=== PATIENT | female | born 1980 | race Caucasian/White ===

== ENCOUNTER 2017-02-12 19:25 | Emergency (ER) | payer SELFPAY ==
[~2017-02-12] VITALS: Ht 165.1 cm; Wt 93.6 kg
[~2017-02-12 19:25] MED LIST: PREN0.01 PO; [UNRECOGNIZED DRUG - OTHER] PO
[2017-02-12 19:33] VITALS: BP 120/74; PULSE 66; RESP 20; TEMP 98.4; O2SAT 99
[2017-02-12] MEDS ORDERED: SODIUM CHLOR 0.9% 1000 ML INJ 1,000 ML IV ONE (19:54)
[2017-02-12] MEDS ORDERED: SODIUM CHLORIDE 0.9% FLUSH 10 ML FLUSH IVF PRN (20:00)
--- NOTE | 2017-02-12 20:15 | PD ---
HPI Chief Complaint: [employer] Problem/Complaint Time Seen by Provider: 19:44 Travel History International Travel<30 days: No Contact w/Intl Traveler<30days: No Traveled to known affect area: No History of Present Illness HPI Patient is a 36-year-old female who presents to emergency room with complaints of irregular vaginal bleeding. Reports that she has history of PCOS, reports that she also has abnormal menstrual periods. Patient reports that she began to have heavy bleeding since January 26, reports that she uses a heavy pad per hour. Reports that she thought that she was having her menstrual period as she last had her period on November 08, reports that she has not had bleeding since then. She reports that since January 26, she's had increased abdominal cramping and pain. Patient denies sensation of lightheadedness or dizziness. She reports that she did take a test 3 weeks ago which was negative. Patient security specialist is Dr. Chowdhury. [facility] Past Medical History Asthma: Yes Diminished Hearing: No Medical other: Yes (POLYCUSTIC OVARY SYNDROME) Tetanus Vaccination: > 5 Years Influenza Vaccination: No ?: Unknown LMP: 11/08/16 Past Surgical History Section: Yes Gynecologic Surgery: Yes () Social History Alcohol Use: No Tobacco Use: No Substance Use: No Allergies-Medications (Allergen,Severity, Reaction): Coded Allergies: Latex (Verified Adverse Reaction, Mild, IRRITATES SKIN, 03/03/11) No Known Allergies (Verified , 03/03/11) Reported Meds & Prescriptions Reported Meds & Active Scripts Active No Active Prescriptions or Reported Medications Review of Systems General / Constitutional: No: Fever Eyes: No: Visual changes HENT: No: Headaches Cardiovascular: No: Chest Pain or Discomfort Respiratory: No: Shortness of Breath Gastrointestinal: No: Abdominal Pain Genitourinary: Positive: Pelvic Pain, Vaginal Bleeding, No: Urgency, Frequency , Dysuria Musculoskeletal: No: Pain Skin: No Rash Neurologic: No: Weakness Psychiatric: No: Depression Endocrine: No: Polydipsia Hematologic/Lymphatic: No: Easy Bruising Physical Exam Narrative GENERAL: mild distress SKIN: Focused skin assessment warm/dry. HEAD: Atraumatic. Normocephalic. EYES: Pupils equal and round. No scleral icterus. No injection or drainage. ENT: No nasal bleeding or discharge. Mucous membranes pink and moist. NECK: Trachea midline. No JVD. CARDIOVASCULAR: Regular rate and rhythm. No murmur appreciated. RESPIRATORY: No accessory muscle use. Clear to auscultation. Breath sounds equal bilaterally. GASTROINTESTINAL: Abdomen soft, non-tender, nondistended. Hepatic and splenic margins not palpable. : Exam performed with RN at bedside, patient with blood/clots in vaginal vault , cervix closed, no cmt tenderness, b/l adnexal tenderness MUSCULOSKELETAL: No obvious deformities. No clubbing. No cyanosis. No edema. NEUROLOGICAL: Awake and alert. No obvious cranial nerve deficits. Motor grossly within normal limits. Normal speech. PSYCHIATRIC: Appropriate mood and affect; insight and judgment normal. Data Data Last Documented VS Vital Signs Date Time Temp Pulse Resp B/P Pulse Ox O2 Delivery O2 Flow Rate FiO2 02/12/17 19:50 18 02/12/17 19:33 98.4 20 120/74 99 Orders Beta Hcg (Quant/Titer) (02/12/17 19:54) Complete Blood Count With Diff (02/12/17 19:54) Comprehensive Metabolic Panel (02/12/17 19:54) Gc And Chlamydia Pcr (02/12/17 19:54) Wet Prep Profile (02/12/17 19:54) Urinalysis - C+S If Indicated (02/12/17 19:54) Iv Access Insert/Monitor (02/12/17 19:54) Sodium Chloride 0.9% Flush (Ns Flush) (02/12/17 20:00) Sodium Chlor 0.9% 1000 Ml Inj (Ns 1000 M (02/12/17 19:54) Us Pelvis Comp W Doppler (02/12/17 19:54) Ed Urine Pregnancytest Poc (02/12/17 19:54) Urine Culture (02/12/17 20:09) Ceftriaxone Inj (Rocephin Inj) (02/12/17 20:45) Labs Laboratory Tests Test 02/12/17 02/12/17 20:09 20:23 Urine Color RED Urine Turbidity CLOUDY Urine pH 6.0 Urine Specific [place] 1.011 Urine Protein 300 OR GREATER mg/dL Urine Glucose (UA) NEG mg/dL Urine Ketones NEG mg/dL Urine Occult Blood LARGE Urine Nitrite NEG Urine Bilirubin NEG Urine Leukocyte Esterase TRACE Urine RBC INNUM /hpf Urine WBC 9-14 /hpf Urine Squamous Epithelial 0-5 /hpf Cells Microscopic Urinalysis Comment CULTURE INDICATED Clue Cells (Wet Prep) NONE SEEN Vaginal Trichomonas (Wet Prep) NONE SEEN Vaginal Yeast (Wet Prep) NONE SEEN White Blood Count 9.9 TH/MM3 Red Blood Count 4.49 MIL/MM3 Hemoglobin 12.9 GM/DL Hematocrit 38.0 % Mean Corpuscular Volume 84.6 FL Mean Corpuscular Hemoglobin 28.8 PG Mean Corpuscular Hemoglobin 34.0 % Concent Red Cell Distribution Width 12.7 % Platelet Count 165 TH/MM3 Mean Platelet Volume 11.4 FL Neutrophils (%) (Auto) 55.3 % Lymphocytes (%) (Auto) 32.1 % Monocytes (%) (Auto) 5.7 % Eosinophils (%) (Auto) 2.3 % Basophils (%) (Auto) 4.6 % Neutrophils # (Auto) 5.4 TH/MM3 Lymphocytes # (Auto) 3.2 TH/MM3 Monocytes # (Auto) 0.6 TH/MM3 Eosinophils # (Auto) 0.2 TH/MM3 Basophils # (Auto) 0.5 TH/MM3 CBC Comment DIFF FINAL Differential Comment Sodium Level 140 MEQ/L Potassium Level 4.1 MEQ/L Chloride Level 106 MEQ/L Carbon Dioxide Level 26.8 MEQ/L Anion Gap 7 MEQ/L Blood Urea Nitrogen 11 MG/DL Creatinine 0.66 MG/DL Estimat Glomerular Filtration 102 ML/MIN Rate Random Glucose 84 MG/DL Calcium Level 9.3 MG/DL Total Bilirubin 0.4 MG/DL Aspartate Amino Transf 41 U/L (AST/SGOT) Alanine Aminotransferase 55 U/L (ALT/SGPT) Alkaline Phosphatase 91 U/L Total Protein 8.3 GM/DL Albumin 3.9 GM/DL Human Chorionic Gonadotropin, LESS THAN 1 Quant MIU/ML MDM Medical Decision Making Medical Screen Exam Complete: Yes Emergency Medical Condition: Yes Interpretation(s) Vital Signs Date Time Temp Pulse Resp B/P Pulse Ox O2 Delivery O2 Flow Rate FiO2 02/12/17 19:50 18 02/12/17 19:33 98.4 66 20 120/74 99 Differential Diagnosis Differential includes irregular vaginal bleeding, miscarriage, electrolyte abnormality, ovarian torsion, ovarian cyst, endometriosis Narrative Course Patient is a 36-year-old female who presents to emergency room with complaints of irregular vaginal bleeding. Symptoms began on January 26, reports that she has had heavy bleeding since then. She reports that she has abnormal menstrual cycles and does not get monthly cycles at baseline, she currently is not on any control pills. Denies lightheadness/dizzyness. Reports increased lower abdominal pain and cramping. Pelvic Exam was performed with RN at bedside, cervical os was closed. Patient with moderate amount of blood in vaginal vault with clots. Lab work including pelvic ultrasound ordered. HCG Quant ordered to evaluate for possible early versus miscarriage Vital Signs Date Time Temp Pulse Resp B/P Pulse Ox O2 Delivery O2 Flow Rate FiO2 02/12/17 19:50 18 02/12/17 19:33 98.4 66 20 120/74 99 CBC & BMP Diagram 02/12/17 20:23 hgb 12.9, hct 38, platelet: 165, hcg quant less than 1, bmp: wnl, ua positive for 300 protein, large blood , innum rbc, 9-14 wbc, trace leuk esterase - plan to treat for uti, clue cells neg, trich neg, yeast neg, G/C pending Pelvic US: Complex cyst in left ovary measuring 1.6 cm. Overall, vital signs stable, blood work stable, plan to have patient follow up with her healthcare representative and return to the emergency room as needed. Diagnosis Primary Impression: Excessive vaginal bleeding Additional Impressions: Ovarian cyst UTI (urinary tract infection) Qualified Code: N30.01 - Acute cystitis with hematuria Patient Instructions: General Instructions Additional Instructions: Please follow-up with all cultures from today Return to the emergency if symptoms worsen or progress Return to emergency room as needed Please follow up with your primary care doctor Please follow up with your healthcare representative as soon as possible Med/Other Pt SpecificInfo: Prescription(s) given Scripts Nitrofurantoin Monohydrate Macrocrystals (Macrobid)100 Mg [id number] Mg PO BID 10 Days Ref 0 Prov:Ban Lagunas DO 02/12/17 Disposition: 01 DISCHARGE HOME Condition: Stable Ban Lagunas DO Feb 12, 2017 20:15
[2017-02-12 20:29] LABS: BLOOD, URINE LARGE (NEG); GLUCOSE,URINE NEG (NEG); KETONE, URINE NEG (NEG); NITRITE,URINE NEG (NEG)
[2017-02-12 20:30] LABS: AUTOMATED NEUTROPHIL # 5.4 TH/MM3 (1.8-7.7); BASOPHIL # 0.5 TH/MM3 (0-0.2); BASOPHIL % 4.6 % (0.0-2.0); EOSINOPHIL # 0.2 TH/MM3 (0-0.4); EOSINOPHIL % 2.3 % (0.0-4.0); HEMO FLAGS DIFF FINAL; LYMPH % 32.1 % (9.0-44.0); LYMPHOCYTE # 3.2 TH/MM3 (1.0-4.8); MEAN CELL VOLUME 84.6 FL (80.0-100.0); MEAN CORPUSCULAR HEMOGLOBIN 28.8 PG (27.0-34.0); MONO % 5.7 % (0.0-8.0); NEUT % 55.3 % (16.0-70.0); PLATELET COUNT 165 TH/MM3 (150-450); RED BLOOD COUNT 4.49 MIL/MM3 (4.00-5.30); RED CELL DISTRIBUTION WIDTH 12.7 % (11.6-17.2); WHITE BLOOD COUNT 9.9 TH/MM3 (4.0-11.0)
[2017-02-12 20:31] LABS: COMMENT (UR) CULTURE INDICATED; CULTURE IF INDICATED CULTURE INDICATED; RBC, URINE INNUM /hpf (0-3); SQUAMOUS EPITHELIAL CELL URINE 0-5 /hpf (0-5); URINE COLOR RED (YELLW/STRAW)
[2017-02-12 20:37] LABS: CHLORIDE 106 MEQ/L (98-107); SODIUM (NA) 140 MEQ/L (136-145)
[2017-02-12 20:38] LABS: POTASSIUM 4.1 MEQ/L (3.5-5.1)
[2017-02-12 20:40] LABS: ANION GAP 7 MEQ/L (5-15); BICARBONATE 26.8 MEQ/L (21.0-32.0); BLOOD UREA NITROGEN 11 MG/DL (7-18)
[2017-02-12 20:43] LABS: ALT (GPT) 55 U/L (10-53); AST (GOT) 41 U/L (15-37)
[2017-02-12 20:44] LABS: GLOMERULAR FILTRATION RATE 102 ML/MIN (>89)
[2017-02-12 20:45] LABS: TOTAL BILIRUBIN ADULT 0.4 MG/DL (0.2-1.0)
[2017-02-12] MEDS ORDERED: cefTRIAXone INJ 1,000 MG in SODIUM CHLORIDE 0.9% INJ 100 ML IV ONE (20:45)
[2017-02-12 20:46] LABS: ALKALINE PHOSPHATASE 91 U/L (45-117)
[2017-02-12 20:48] LABS: BETA HCG QUANT LESS THAN 1 MIU/ML (0-5)
--- NOTE | 2017-02-12 21:55 | RADRPT ---
EXAM DATE/TIME: 02/12/2017 20:33 [facility] COMPARISON: No previous studies available for comparison. INDICATIONS : Pelvic pain. MEDICAL HISTORY : Asthma. Polycystic ovarian syndrome. SURGICAL HISTORY : section. ENCOUNTER: Initial ACUITY: 2 weeks PAIN SCORE: 2/10 LOCATION: Bilateral pelvis MEASUREMENTS: UTERUS: 9.2 x 4.5 x 5.1 cm ENDOMETRIAL STRIPE: 7 mm RIGHT OVARY: 2.7 x 2.4 x 2.0 cm LEFT OVARY: 3.5 x 2.9 x 2.1 cm FINDINGS: UTERUS: The myometrium has homogeneous echotexture without mass. Endometrial stripe is homogeneous echotextur e. Several nabothian cysts measuring up to 7 mm. RIGHT OVARY: Ovary contains no mass or significant cystic lesion. LEFT OVARY: There is a 1.6 x 1.1 cm cystic area in the ovary which demonstrates through transmission and has hete rogeneous echotexture within. No increased flow in this lesion by color Doppler. The remainder of t he ovary has a homogeneous echotexture. MISCELLANEOUS: No free fluid. CONCLUSION: Complex cyst in the left ovary measuring 1.6 cm. Otherwise negative pelvic sonogram. David Pollock MD on February 12, 2017 at 21:49 Board Certified Radiologist. This report was verified electronically.
[2017-02-12] MEDS ORDERED: MACR100C2 PO (22:12)
[2017-02-13 02:22] LABS: CHLAMYDIA PCR NOT DETECTED (NOT DETECT); NEISSERIA PCR NOT DETECTED (NOT DETECT)
--- NOTE | 2017-02-20 16:16 | RADRPT ---
EXAM DATE/TIME: 02/12/2017 20:33 [place] Corrected on: February 20, 2017; Updated report header [facility] COMPARISON: No previous studies available for comparison. INDICATIONS : Pelvic pain. MEDICAL HISTORY : Asthma. Polycystic ovarian syndrome. SURGICAL HISTORY : section. ENCOUNTER: Initial ACUITY: 2 weeks PAIN SCORE: 2/10 LOCATION: Bilateral pelvis MEASUREMENTS: UTERUS: 9.2 x 4.5 x 5.1 cm ENDOMETRIAL STRIPE: 7 mm RIGHT OVARY: 2.7 x 2.4 x 2.0 cm LEFT OVARY: 3.5 x 2.9 x 2.1 cm FINDINGS: UTERUS: The myometrium has homogeneous echotexture without mass. Endometrial stripe is homogeneous echotextur e. Several nabothian cysts measuring up to 7 mm. RIGHT OVARY: Ovary contains no mass or significant cystic lesion. LEFT OVARY: There is a 1.6 x 1.1 cm cystic area in the ovary which demonstrates through transmission and has hete rogeneous echotexture within. No increased flow in this lesion by color Doppler. The remainder of t he ovary has a homogeneous echotexture. MISCELLANEOUS: No free fluid. CONCLUSION: Complex cyst in the left ovary measuring 1.6 cm. Otherwise negative pelvic sonogram. David Pollock MD on February 12, 2017 at 21:49 Board Certified Radiologist. This report was verified electronically. on February 20, 2017 at 16:14 Board Certified Radiologist. This report was verified electronically.
== END 2017-02-12 22:35 | disposition home or self-care (01) ==
LOC: PHED 19:25
DX: N93.9 Abnormal uterine and vaginal bleeding, unspecified (principal); N30.01 Acute cystitis with hematuria; B96.89 Other specified bacterial agents as the cause of diseases classified elsewhere; E28.2 Polycystic ovarian syndrome; R10.2 Pelvic and perineal pain
CPT/HCPCS: 76830; 76856; 80053; 81001; 84702; 84703; 85025; 87086; 87210; 87491; 87591; 93975; 96361; 96365; 99285; J0696; J7030